=== PATIENT | male | born 1945 | race Caucasian/White ===

== ENCOUNTER 2018-01-24 08:53 | Observation (INO) | payer OTHER ==
[~2018-01-24] VITALS: Ht 165.1 cm; Wt 62.2 kg
[~2018-01-24 08:53] MED LIST: BENICAR40 MG PO; CHANTIX0.5 MG PO; FENOFIBRATE160 MG PO; LIPITOR80 MG PO; LO-DOSE ASPIRIN81 M2 PO; NORVASC10 MG PO; NORVASC2.5 MG PO; OMEPRAZOLE40 M1 PO
[2018-01-24 09:24] LABS: HEMATOCRIT 36.1 % (38.0-50.0); HEMOGLOBIN 12.6 G/DL (12.5-16.6); MCH 28.3 PG (29.0-34.0); MCHC 34.9 G/DL (30.0-36.0); MCV 81.1 FL (86-99); PLATELET COUNT 231 K/uL (156-360); RBC DIS.WIDTH-CV 13.8 % (11.8-14.6); RBC DIS.WIDTH-SD 40.2 % (39-53); RED BLOOD COUNT 4.45 M/uL (4.00-5.50); WHITE BLOOD COUNT 9.8 K/uL (4.1-10.2)
[2018-01-24 09:35] LABS: ALBUMIN 3.9 g/dL (3.2-4.8); CHLORIDE 104 mEq/L (99-109); POTASSIUM 3.1 mEq/L (3.7-5.4); SODIUM 143 mEq/L (136-147)
[2018-01-24 09:38] LABS: GLUCOSE 115 mg/dL (70-99); TOTAL PROTEIN 6.9 g/dL (6.4-8.3)
[2018-01-24 09:39] LABS: TOTAL BILIRUBIN 0.6 mg/dL (0.0-1.0)
[2018-01-24 09:41] LABS: ALKALINE PHOSPHATASE 90 IU/L (3-129); GFR ESTIMATE (CALCULATED) > 59 mL/min/ (58.99-99999)
[2018-01-24 09:42] LABS: UREA NITROGEN (BUN) 18 mg/dL (9-23)
[2018-01-24 09:43] LABS: AST (GOT) 29 IU/L (2-34)
[2018-01-24 09:44] LABS: ALT (GPT) 26 IU/L (3-49)
[2018-01-24 09:47] LABS: TROP-I INTERPRETATION NEGATIVE; TROPONIN-I < 0.01 ng/mL (0.0-0.30)
[2018-01-24] MEDS ORDERED: MICROZIDE12.5 M1 PO (10:30)
[2018-01-24] MEDS ORDERED: SYNTHROID50 MCG PO (10:30)
[2018-01-24 10:31] LABS: MAGNESIUM 0.8 mg/dL (1.3-2.7)
[2018-01-24] MEDS ORDERED: CENTRUM SILVER1 EAC5 PO (10:37)
[2018-01-24] MEDS ORDERED: KLOR-CON M2020 MEQ PO (10:38)
[2018-01-24] MEDS ORDERED: TOPROL XL50 MG PO (10:42)
[2018-01-24 11:24] LABS: THYROTROPIN (TSH) 7.9 MIU/L (0.4-5.5)
[2018-01-24 11:52] VITALS: BP 133/62
[2018-01-24 11:55] LABS: TROP-I INTERPRETATION NEGATIVE; TROPONIN-I < 0.01 ng/mL (0.0-0.30)
[2018-01-24 12:07] LABS: INTACT PARATHYROID HORMONE 48 pg/mL (10-69)
[2018-01-24 16:57] LABS: TROP-I INTERPRETATION NEGATIVE; TROPONIN-I 0.02 ng/mL (0.0-0.30)
[2018-01-24 19:00] VITALS: BP 148/70
[2018-01-24 20:57] LABS: CARBON DIOXIDE (BICARBONATE) 29.2 MEQ/L (20-31)
[2018-01-24 21:13] LABS: TROP-I INTERPRETATION NEGATIVE; TROPONIN-I < 0.01 ng/mL (0.0-0.30)
[2018-01-24 21:24] LABS: CHLORIDE 102 MEQ/L (99-109); GFR ESTIMATE (CALCULATED) > 59 mL/min/ (58.99-99999); GLUCOSE 130 mg/dL (70-99); POTASSIUM 3.2 MEQ/L (3.7-5.4); SODIUM 140 MEQ/L (136-147); UREA NITROGEN (BUN) 14 mg/dL (9-23)
[2018-01-24 21:26] LABS: ALBUMIN 3.7 G/DL (3.2-4.8); ALKALINE PHOSPHATASE 74 IU/L (3-129); ALT (GPT) 18 IU/L (3-49); AST (GOT) 23 IU/L (2-34); MAGNESIUM 1.2 mg/dl (1.3-2.7); PHOSPHORUS 3.2 mg/dL (2.5-4.9); TOTAL BILIRUBIN 0.5 MG/DL (0.0-1.0); TOTAL PROTEIN 6.6 G/DL (6.4-8.3)
[2018-01-25] VITALS (7 sets, daily range): BP systolic 122–167; BP diastolic 64–88
[2018-01-25 06:25] LABS: CHLORIDE 105 MEQ/L (99-109); CREATININE 0.8 MG/DL (0.6-1.3); GFR ESTIMATE (CALCULATED) > 59 mL/min/ (58.99-99999); GLUCOSE 88 mg/dL (70-99); MAGNESIUM 1.8 mg/dl (1.3-2.7); POTASSIUM 3.7 MEQ/L (3.7-5.4); SODIUM 140 MEQ/L (136-147); UREA NITROGEN (BUN) 10 mg/dL (9-23)
== END 2018-01-25 15:43 | disposition home or self-care (01) ==
LOC: EME 08:53 → EDOF 10:31 → 5WEST 10:31 → EDOF 10:31 → ENRESERV 10:33 → 5WEST 11:29 → ENPENDDIS 01-25 → 5WEST 01-25 15:43
PROVIDERS: Internal Medicine; Nurse Practitioner Family; Physician Assistant Medical
DX: R55 Syncope and collapse (principal); E83.42 Hypomagnesemia; E83.51 Hypocalcemia; E87.6 Hypokalemia; M54.2 Cervicalgia; I25.10 Atherosclerotic heart disease of native coronary artery without angina pectoris; Z95.5 Presence of coronary angioplasty implant and graft; I10 Essential (primary) hypertension; E78.5 Hyperlipidemia, unspecified; E03.9 Hypothyroidism, unspecified; Z87.891 Personal history of nicotine dependence; K21.9 Gastro-esophageal reflux disease without esophagitis; M54.5 Low back pain; R19.7 Diarrhea, unspecified; Z88.0 Allergy status to penicillin; Z82.49 Family history of ischemic heart disease and other diseases of the circulatory system
CPT/HCPCS: 70450; 71046; 80048; 80053; 82330; 82803; 82948; 83735; 83970; 84100; 84439; 84443; 84481; 84484; 85027; 93005; 93306; 93880; 99281; 99285; G0378; J0610; J1650; J3475; J3480; J7030; J7050